=== PATIENT | male | born 1990 | race African-American/Black ===

== ENCOUNTER 2018-03-11 12:41 | Emergency (ER) | payer OTHER ==
[~2018-03-11] VITALS: Ht 172.7 cm; Wt 72.6 kg
[2018-03-11 13:36] LABS: Basophils # (auto) 0 uL; Basophils % (auto) 0.1 % (0.0-2.0); Eosinophils # (auto) 0.1 uL; Eosinophils % (auto) 0.5 % (0.0-7.0); Hematocrit 50.1 % (41.0-53.0); Hemoglobin 16.2 g/dL (13.5-17.5); Lymphocytes # (auto) 1.8 uL; Lymphocytes % (auto) 9.6 % (10.0-50.0); Mean Corpuscular Hemoglobin 28.1 pg (28.0-32.0); Mean Corpuscular Hgb Conc. 32.4 g/dL (32.0-36.0); Mean Corpuscular Volume 86.7 fL (80.0-100.0); Monocytes # (auto) 0.8 uL; Monocytes % (auto) 4.4 % (0.0-12.0); Neutrophils # (auto) 15.6 uL; Neutrophils % (auto) 85.4 % (37.0-80.0); Nucleated Red Blood Cells % 0.1 %; Platelet Count (auto) 254 10^3/uL (140-450); Red Blood Cells 5.77 10^6/uL (4.5-5.90); Red Cell Distribution Width 14.3 % (11.8-14.3); White Blood Cell 18.2 10^3/uL (4.4-10.8)
[2018-03-11 14:03] LABS: Albumin 4.7 g/dL (3.4-5.0); BUN/Creatinine Ratio 6.9; Calcium 8.9 mg/dL (8.5-10.1); Potassium 4.8 mmol/L (3.5-5.1)
[2018-03-11 14:12] LABS: Bilirubin, Total 0.7 mg/dL (0.2-1.0); Total Protein 8.5 g/dL (6.4-8.2)
[2018-03-11] MEDS ORDERED: LORazepam 2MG/ML-1ML VIAL IV ONE (16:00)
[2018-03-11] MEDS ORDERED: ONDANSETRON HCL 4 MG/2 ML VIAL IV ONE (16:00)
[2018-03-11] MEDS ORDERED: SODIUM CHLORIDE 0.9% 1,000 ML IV ONE (17:00)
[2018-03-11] MEDS ORDERED: HYDROcodone-ACET 5/325MG TAB PO ONE (19:15)
[2018-03-11 19:51] LABS: Urine WBC None Seen /hpf (0 - 3)
[2018-03-11 20:10] LABS: Alcohol, Urine < 3.0 mg/dL (0-5); Amphetamine Screen, Urine NEGATIVE (NEGATIVE); Barbiturate Scree,Urine NEGATIVE (NEGATIVE); Benzodiazephine Screen, Urine NEGATIVE (NEGATIVE); Cannabinoid Screen, Urine POSITIVE (NEGATIVE); Cocaine Screen, Urine NEGATIVE (NEGATIVE); Opiate Scree,Urine NEGATIVE (NEGATIVE); Phencyclidine Screen, Urine NEGATIVE (NEGATIVE)
[2018-03-11 20:12] LABS: Urine Bacteria NONE SEEN /hpf (None Seen); Urine Blood Negative /uL (Negative)
[2018-03-11 20:37] VITALS: BP 127/75
== END 2018-03-11 21:38 | disposition home or self-care (01) ==
LOC: ER 12:41
DX: G40.909 Epilepsy, unspecified, not intractable, without status epilepticus (principal); R73.9 Hyperglycemia, unspecified; F12.10 Cannabis abuse, uncomplicated; E83.41 Hypermagnesemia
CPT/HCPCS: 36415; 80053; 80307; 81001; 83036; 83735; 85025; 96374; 96375; 99285; J2060; J2405; J7030